=== PATIENT | male | born 1955 | race Caucasian/White ===

== ENCOUNTER 2020-08-11 08:31 | Outpatient (CLI) | payer MEDICARE, BC ==
[2020-08-11 08:45] LABS: BASOPHILS % (AUTO) 0.3 %; EOSINOPHILS # (AUTO) 0.1 10^3/uL (0.0-0.7); EOSINOPHILS % (AUTO) 0.9 %; HGB - HEMOGLOBIN 15.2 g/dL (14.0-18.0); LYMPHOCYTES # (AUTO) 1.9 10^3/uL (1.5-3.5); LYMPHOCYTES % (AUTO) 28.4 %; MEAN CORPUSCULAR HEMOGLOBIN 33.9 pg (27.0-31.0); MEAN CORPUSCULAR HGB CONC 35.3 g/dL (32.0-36.0); MEAN CORPUSCULAR VOLUME 96.2 fL (80.0-94.0); MEAN PLATELET VOLUME 8.9 fL (7.4-11.4); MONOCYTES # (AUTO) 0.7 10^3/uL (0.0-1.0); NEUTROPHILS # (AUTO) 3.9 10^3/uL (1.5-6.6); NEUTROPHILS % (AUTO) 59.8 %; PLT - PLATELET COUNT 164 10^3/uL (130-450); RED BLOOD COUNT 4.48 10^6/uL (4.70-6.10); RED CELL DISTRIBUTION WIDTH 12.3 % (12.0-15.0); WHITE BLOOD COUNT 6.5 x10^3/uL (4.8-10.8)
[2020-08-11 08:59] LABS: ALBUMIN/GLOBULIN RATIO 1.3 (1.0-2.2); BILIRUBIN,TOTAL 0.9 mg/dL (0.2-1.0); CREATININE 0.8 mg/dL (0.6-1.2)
[2020-08-11] MEDS ORDERED: GADOBUTROL 10 MMOL/10 ML VIAL ONE (09:15)
[2020-08-11] MEDS ORDERED: GADOBUTROL 10 MMOL/10 ML VIAL IVP ONE (10:03)
--- NOTE | 2020-08-13 09:15 | MRI Report ---
PROCEDURE: Pelvis W/WO INDICATIONS: MALIGNANT NEOPLASM OF PROSTATE TECHNIQUE: Coronal ultra fast SE, axial T1 FSE with fat saturation, 3-plane nonbreath-hold T2 FSE. After the ad ministration of contrast, dynamic axial, delayed axial and coronal ultra fast GE or 2-D spoiled GE wi th fat saturation through the pelvis. Optional diffusion weighted imaging and ADC may be performed. COMPARISON: None. FINDINGS: Image quality: Diffusion weighted and dynamic contrast enhanced images are diagnostic. Prostate: Gland size is 6.1 x 4.7 by about 6.4 cm cm; ellipsoid gland volume is 95.4 mL. The entire gland demonstrates slightly heterogeneous T2 hypointensity and a small amount of median lo be hypertrophy to the right of midline indenting the base the bladder. Most of the gland demonstrates restricted diffusion and low ADC signal. The entire gland demonstrates diffuse enhancement. There is no significant capsular disruption. No involvement of the neurovascular bundle on either side. There is T2 hypointensity through the central and left aspect of the seminal vesicles. No visible adenopat hy. Lesion PI-RADS score: 5 Genitourinary system: Bladder wall thickness is normal. Distal ureters are non distended. Bowel and peritoneum: No pathologic free pelvic fluid. Inferior colon and small bowel loops are nor mal in caliber. Nodes and vessels: No pelvic or inguinal adenopathy by size criteria. Iliac vessels are normal in c aliber. Soft tissues: Tiny fat-containing right inguinal hernia. Bones: Bone marrow demonstrates normal overall signal. No suspicious bony lesions. IMPRESSION: 1. Diffuse abnormal signal throughout the entire enlarged prostate gland with extension potentially i nto the central and left seminal vesicles. 2. Multisector random prostate biopsies are recommended if not previously performed. 3. No visible adenopathy in the pelvis. 4. Tiny fat-containing right inguinal hernia. Reviewed by: Adrianna Martinez MD on 08/13/2020 9:14 AM PST Approved by: Adrianna Martinez MD on 08/13/2020 9:14 AM PST Station ID: [id number]
== END 2020-08-11 08:32 | disposition home or self-care (01) ==
LOC: LAB 08:31
PROVIDERS: ATTEND Internal Medicine Hematology & Oncology
DX: R93.89 Abnormal findings on diagnostic imaging of other specified body structures (principal); K40.90 Unilateral inguinal hernia, without obstruction or gangrene, not specified as recurrent; C61 Malignant neoplasm of prostate
CPT/HCPCS: 36415; 72197; 80053; 85025; A9585

== ENCOUNTER 2020-09-05 12:04 | Outpatient (CLI) | payer MEDICARE, BC | END 2020-09-05 12:05 | disposition home or self-care (01) | LOC: LAB 12:04 | PROVIDERS: ATTEND Urology | DX: C61 Malignant neoplasm of prostate (principal) | CPT/HCPCS: 36415; 84153 ==

== ENCOUNTER 2020-11-08 12:09 | Outpatient (CLI) | payer MEDICARE, BC ==
[2020-11-08 12:57] LABS: BILIRUBIN,URINE NEGATIVE (NEGATIVE); GLUCOSE, URINE (UA) NEGATIVE (NEGATIVE); KETONES,URINE (UA) NEGATIVE (NEGATIVE); LEUKOCYTE ESTERASE, URINE SMALL (NEGATIVE); NITRITE,URINE POSITIVE (NEGATIVE); OCCULT BLOOD,URINE TRACE-INTA (NEGATIVE); PROTEIN,URINE NEGATIVE (NEGATIVE); UROBILINOGEN,URINE 1 (NORMAL) E.U./dL (NORMAL)
[2020-11-08 13:29] LABS: BACTERIA,URINE Many /HPF (None Seen); CLARITY,URINE CLOUDY (CLEAR); RBC,URINE 0-5 /HPF (0-5); SQUAMOUS EPITHELIAL CELL,UR RARE Squamous (<= Few); WBC,URINE >25 /HPF (0-3)
== END 2020-11-08 12:10 | disposition home or self-care (01) ==
LOC: LAB 12:09
PROVIDERS: ATTEND Urology
DX: C61 Malignant neoplasm of prostate (principal); R30.0 Dysuria
CPT/HCPCS: 36415; 81001; 81003; 84153; 87086; 87181

== ENCOUNTER 2020-12-12 15:25 | Outpatient (CLI) | payer MEDICARE, BC | END 2020-12-12 15:26 | disposition home or self-care (01) | LOC: LAB 15:25 | PROVIDERS: ATTEND Nurse Practitioner Family | DX: C61 Malignant neoplasm of prostate (principal) | CPT/HCPCS: 36415; 84153 ==

== ENCOUNTER 2020-12-26 15:07 | Outpatient (CLI) | payer MEDICARE, BC ==
[2020-12-26 15:29] LABS: BILIRUBIN,URINE NEGATIVE (NEGATIVE); GLUCOSE, URINE (UA) NEGATIVE (NEGATIVE); KETONES,URINE (UA) NEGATIVE (NEGATIVE); LEUKOCYTE ESTERASE, URINE NEGATIVE (NEGATIVE); NITRITE,URINE POSITIVE (NEGATIVE); OCCULT BLOOD,URINE SMALL (NEGATIVE); PROTEIN,URINE NEGATIVE (NEGATIVE); UROBILINOGEN,URINE 1 (NORMAL) E.U./dL (NORMAL)
[2020-12-26 15:32] LABS: CLARITY,URINE HAZY (CLEAR)
[2020-12-26 15:46] LABS: RBC,URINE 0-5 /HPF (0-5)
[2020-12-26 15:47] LABS: BACTERIA,URINE Moderate /HPF (None Seen); SQUAMOUS EPITHELIAL CELL,UR NONE SEEN (<= Few)
== END 2020-12-26 15:08 | disposition home or self-care (01) ==
LOC: LAB 15:07
PROVIDERS: ATTEND Urology
DX: N30.00 Acute cystitis without hematuria (principal)
CPT/HCPCS: 81001; 81003; 87086; 87181

== ENCOUNTER 2021-02-15 12:21 | Outpatient (CLI) | payer MEDICARE, BC ==
--- NOTE | 2021-02-15 14:19 | Ultrasound Report ---
PROCEDURE: Head or Neck Soft Tissue INDICATIONS: THYROID NODULE TECHNIQUE: Real time scanning was performed of the neck region of interest, with image documentation . COMPARISON: None. FINDINGS: There is a single solid hyperechoic nodule in the left thyroid lobe inferiorly measuring ap proximately 1.5 x 2.0 x 2.0 cm. This nodule has macroscopic shadowing calcifications. The thyroid is otherwise normal in appearance. IMPRESSION: Single mildly suspicious left inferior thyroid nodule. Follow-up in 12 months is recommended. Reviewed by: Suraj Bernard MD on 02/15/2021 2:18 PM PDT Approved by: Suraj Bernard MD on 02/15/2021 2:18 PM PDT Station ID: [id number]
== END 2021-02-15 12:22 | disposition home or self-care (01) ==
LOC: DI 12:21
PROVIDERS: ATTEND Internal Medicine Hematology & Oncology
DX: E04.1 Nontoxic single thyroid nodule (principal)

== ENCOUNTER 2021-11-15 08:00 | Outpatient (CLI) | payer MEDICARE, BC ==
--- NOTE | 2021-11-15 14:28 | XRAY Report ---
PROCEDURE: Ribs 2 View RT INDICATIONS: FALL/BACK PAIN/RIGHT RIB PAIN TECHNIQUE: 4 views of the right ribs were acquired. COMPARISON: None. FINDINGS: Surgical changes and devices: None. Bones and chest wall: No fractures or dislocations. No suspicious bony lesions. Overlying soft tis sues appear unremarkable. Lungs and pleura: The visualized lung appears clear. No pleural effusions or pneumothorax are visib le. IMPRESSION: No gross displaced right rib fracture is seen. Visualized right lung field is clear. Reviewed by: Niraj Steele MD on 11/15/2021 2:27 PM PDT Approved by: Niraj Steele MD on 11/15/2021 2:27 PM PDT Station ID: [id number]
--- NOTE | 2021-11-15 14:29 | XRAY Report ---
PROCEDURE: ThoracoLumbar 2 View INDICATIONS: FALL/BACK PAIN TECHNIQUE: 2 views acquired of the thoracolumbar spine. COMPARISON: None. FINDINGS: Bones: No acute fractures or dislocations. Visualized inferior ribs appear intact. Degenerative en dplate changes and loss of disc height throughout lower thoracic and lumbar spine is seen. No suspici ous bony lesions. Soft tissues: No suspicious soft tissue calcifications. IMPRESSION: No acute compression fracture or spondylolisthesis in visualized portion of thoracic and lumbar spine . Degenerative disc disease throughout the spine. Reviewed by: Niraj Steele MD on 11/15/2021 2:28 PM PDT Approved by: Niraj Steele MD on 11/15/2021 2:28 PM PDT Station ID: [id number]
== END 2021-11-15 23:59 | disposition home or self-care (01) ==
LOC: DI.S 08:00
PROVIDERS: ATTEND Physician Assistant Medical
DX: R07.81 Pleurodynia (principal); M51.36 Other intervertebral disc degeneration, lumbar region; M51.34 Other intervertebral disc degeneration, thoracic region

== ENCOUNTER 2021-12-13 14:22 | Outpatient (CLI) | payer MEDICARE, BC ==
[2021-12-13 15:40] LABS: BILIRUBIN,URINE NEGATIVE (NEGATIVE); GLUCOSE, URINE (UA) NEGATIVE (NEGATIVE); KETONES,URINE (UA) NEGATIVE (NEGATIVE); LEUKOCYTE ESTERASE, URINE NEGATIVE (NEGATIVE); NITRITE,URINE NEGATIVE (NEGATIVE); OCCULT BLOOD,URINE TRACE-INTA (NEGATIVE); PROTEIN,URINE NEGATIVE (NEGATIVE); UROBILINOGEN,URINE 0.2 (NORMAL) E.U./dL (NORMAL)
[2021-12-13 15:53] LABS: BACTERIA,URINE None Seen /HPF (None Seen); CLARITY,URINE CLEAR (CLEAR); RBC,URINE 0-5 /HPF (0-5); SQUAMOUS EPITHELIAL CELL,UR NONE SEEN (<= Few); WBC,URINE 0-3 /HPF (0-3)
== END 2021-12-13 14:23 | disposition home or self-care (01) ==
LOC: LAB 14:22
PROVIDERS: ATTEND Urology
DX: R30.0 Dysuria (principal)
CPT/HCPCS: 81001; 87086

== ENCOUNTER 2023-10-22 20:39 | Emergency (ER) | payer MEDICARE, BC ==
[2023-10-22 21:27] LABS: BASOPHILS % (AUTO) 0.2 %; EOSINOPHILS % (AUTO) 0.3 %; HCT - HEMATOCRIT 40.3 % (42.0-52.0); HGB - HEMOGLOBIN 13.8 g/dL (14.0-18.0); LYMPHOCYTES # (AUTO) 0.9 10^3/uL (1.5-3.5); LYMPHOCYTES % (AUTO) 9.5 %; MEAN CORPUSCULAR HGB CONC 34.2 g/dL (32.0-36.0); MEAN CORPUSCULAR VOLUME 96.4 fL (80.0-94.0); MEAN PLATELET VOLUME 8.4 fL (7.4-11.4); MONOCYTES # (AUTO) 0.6 10^3/uL (0.0-1.0); MONOCYTES % (AUTO) 6.1 %; NEUTROPHILS # (AUTO) 7.5 10^3/uL (1.5-6.6); NEUTROPHILS % (AUTO) 83.2 %; PLT - PLATELET COUNT 230 10^3/uL (130-450); RED BLOOD COUNT 4.18 10^6/uL (4.70-6.10); RED CELL DISTRIBUTION WIDTH 12.5 % (12.0-15.0)
[2023-10-22 21:35] LABS: PARTIAL THROMBOPLASTIN TIME 28.1 secs (24.9-33.3)
[2023-10-22 21:39] LABS: INR 1.2 (0.8-1.2); PT - PROTHROMBIN TIME 13.3 secs (9.9-12.6)
[2023-10-22 21:40] LABS: ALBUMIN/GLOBULIN RATIO 1.3 (1.0-2.2); BILIRUBIN,TOTAL 0.9 mg/dL (0.2-1.0); CREATININE 0.8 mg/dL (0.6-1.3); POTASSIUM 3.4 mmol/L (3.5-4.5)
[2023-10-22] MEDS: LIDOCAINE 2% URO-JET 5 ML SYRINGE UR STA (21:47)
--- NOTE | 2023-10-22 21:54 | ED Physician Documentation ---
History of Present Illness - Stated complaint Stated Complaint: - Chief complaint Chief Complaint: General - History obtained from History obtained from: Patient - Additonal information Additional information: The patient comes to the emergency department chief complaint of hematuria and urinary retention. He has a history of prostate cancer and has received many rounds of radiation previously resulting in scarring. He has had a number of hemorrhagic UTIs including a recent 1 within the last couple of weeks. The patient states that he finished the antibiotics last week And saw his urologist yesterday and had a cystoscopy that was reassuring. The patient's urinalysis was negative yesterday in the urologist office prior to the cystoscopy. However, the patient began to notice pain with urination again today and noticed that he had dark red blood in his urine. Then he just stopped being able to urinate at all. Patient has not urinated for several hours and is having a lot of lower abdominal discomfort. He denies fevers, chills, nausea, or vomiting. No other complaints at this time. PD PAST MEDICAL HISTORY - Past Medical History Past Medical History: Yes Cardiovascular: None Respiratory: None Neuro: None Endocrine/Autoimmune: None GI: None : Other Psych: None Musculoskeletal: None Derm: None Other Past Medical History: Prostate CA - Past Surgical History Past Surgical History: Yes - Present Medications Home Medications: Ambulatory Orders Medication Instructions Recorded Confirmed ALPRAZolam [Alprazolam] 0.5 mg PO PRN PRN 07/27/20 12/07/20 Aspirin [Aspirin EC] 81 mg PO DAILY 07/27/20 12/07/20 Atenolol/Chlorthalidone [Tenoretic 1 tab PO DAILY 07/27/20 12/07/20 50 Tablet] Doxazosin [Cardura] 1 mg PO DAILY 07/27/20 12/07/20 Simvastatin [Zocor] 20 mg PO DAILY 07/27/20 12/07/20 cephALEXin [Keflex] 500 mg PO Q6H #28 cap 10/25/23 - Allergies Allergies/Adverse Reactions: Allergies Allergy/AdvReac Type Severity Reaction Status Date / Time No Known Drug Allergies Allergy Verified 10/23/23 06:33 - Social History Does the pt smoke?: No Smoking Status: Never smoker Does the pt drink ETOH?: No Does the pt have substance abuse?: No - Immunizations Immunizations are current?: Yes - POLST Patient has POLST: No PD ED PE NORMAL - Vitals Vital signs reviewed: Yes - General General: Alert and oriented X 3, No acute distress, Well developed/nourished - HEENT HEENT: Atraumatic, PERRL, EOMI, Moist mucous membranes - Neck Neck: Supple, no meningeal sign - Cardiac Cardiac: RRR, No murmur - Respiratory Respiratory: No respiratory distress, Clear bilaterally - Abdomen Abdomen: Soft, Non tender, Non distended - Derm Derm: Normal color, Warm and dry, No rash - Extremities Extremities: No deformity, No edema - Neuro Neuro: Alert and oriented X 3 - Psych Psych: Normal mood, Normal affect Results - Vitals Vitals: Oxygen O2 Source Room air - Labs Labs: Microbiology 10/22/23 23:02 Urine Culture - Final Urine,Random Escherichia Coli Laboratory Tests 10/22/23 10/22/23 10/22/23 21:22 21:22 21:22 WBC 9.0 RBC 4.18 L Hgb 13.8 L Hct 40.3 L MCV 96.4 H MCH 33.0 H MCHC 34.2 RDW 12.5 Plt Count 230 MPV 8.4 Neut # (Auto) 7.5 H Lymph # (Auto) 0.9 L [place] # (Auto) 0.6 Eos # (Auto) 0.0 Baso # (Auto) 0.0 Absolute Nucleated RBC 0.00 Nucleated RBC % 0.0 PT 13.3 H INR 1.2 APTT 28.1 Sodium 133 L Potassium 3.4 L Chloride 100 L Carbon Dioxide 24 Anion Gap 9.0 BUN 21 H Creatinine 0.8 Estimated GFR (MDRD) 96 Glucose 124 H Calcium 9.0 Total Bilirubin 0.9 AST 14 ALT 14 Alkaline Phosphatase 62 Total Protein 7.0 Albumin 4.0 Globulin 3.0 Albumin/Globulin Ratio 1.3 Lipase 31 Urine Color Urine Clarity Urine pH Ur Specific [place] Urine Protein Urine Glucose (UA) Urine Ketones Urine Occult Blood Urine Nitrite Urine Bilirubin Urine Urobilinogen Ur Leukocyte Esterase Urine RBC Urine WBC Ur Squamous Epith Cells Urine Bacteria Ur Microscopic Review Urine Culture Comments 10/22/23 23:02 WBC RBC Hgb Hct MCV MCH MCHC RDW Plt Count MPV Neut # (Auto) Lymph # (Auto) [place] # (Auto) Eos # (Auto) Baso # (Auto) Absolute Nucleated RBC Nucleated RBC % PT INR APTT Sodium Potassium Chloride Carbon Dioxide Anion Gap BUN Creatinine Estimated GFR (MDRD) Glucose Calcium Total Bilirubin AST ALT Alkaline Phosphatase Total Protein Albumin Globulin Albumin/Globulin Ratio Lipase Urine Color RED/BLOODY Urine Clarity BLOODY Urine pH 7.5 Ur Specific [place] 1.020 Urine Protein >=300 H Urine Glucose (UA) NEGATIVE Urine Ketones NEGATIVE Urine Occult Blood LARGE H Urine Nitrite NEGATIVE Urine Bilirubin NEGATIVE Urine Urobilinogen 0.2 (NORMAL) Ur Leukocyte Esterase TRACE H Urine RBC TNTC H Urine WBC 0-3 Ur Squamous Epith Cells NONE SEEN Urine Bacteria Few Ur Microscopic Review INDICATED Urine Culture Comments INDICATED PD Medical Decision Making - ED course Complexity details: reviewed results, re-evaluated patient, considered differential, d/w patient, d/w family ED course: Mahoney catheter was placed which did show frankly bloody urine with minimal clotting. The drainage seemed to be good, and the patient did feel much better after the catheter was placed. He was not lightheaded and his CBC showed a hemoglobin of 13. The patient still had a urinalysis pending at change of shift and he was signed out to Dr. Barbosa, pending this. I do anticipate he will be discharged home, but will need to call his urologist office to determine whether further intervention is needed. Departure - Departure Disposition: Home, Self Care Clinical Impression: Urinary retention Hematuria Qualifiers: Hematuria type: gross Qualified Code(s): R31.0 - Gross hematuria Condition: Stable Instructions: ED Catheter Care Mahoney, ED Retention Urinary Male Prescriptions: cephALEXin [Keflex] 500 mg PO Q6H #28 cap Comments: You have been given a catheter with a leg bag and should use this for the next few days. Your bladder has been irrigated and we have gotten a few clots out but you do not seem to be clotting much. You do not appear to have a urinary tract infection. Is important that you call your urologist office first thing in the morning and let them know what is going on. Forms: PCP List Discharge Date/Time: 10/23/23 01:46
[2023-10-22] MEDS: SODIUM CHLORIDE 0.9% 1,000 ML IV STA (22:21)
[2023-10-22] MEDS: HYDROmorphone 1 MG/ML CARPUJECT IVP STA (22:52)
[2023-10-23 00:04] LABS: BILIRUBIN,URINE NEGATIVE (NEGATIVE); GLUCOSE, URINE (UA) NEGATIVE (NEGATIVE); KETONES,URINE (UA) NEGATIVE (NEGATIVE); LEUKOCYTE ESTERASE, URINE TRACE (NEGATIVE); NITRITE,URINE NEGATIVE (NEGATIVE); OCCULT BLOOD,URINE LARGE (NEGATIVE); PH,URINE 7.5 PH (5.0-7.5); PROTEIN,URINE >=300 mg/dL (NEGATIVE); UROBILINOGEN,URINE 0.2 (NORMAL) E.U./dL (NORMAL)
[2023-10-23 00:06] LABS: BACTERIA,URINE Few /HPF (None Seen); CLARITY,URINE BLOODY (CLEAR); RBC,URINE TNTC /HPF (0-5); SQUAMOUS EPITHELIAL CELL,UR NONE SEEN (<= Few); WBC,URINE 0-3 /HPF (0-3)
--- NOTE | 2023-10-23 00:44 | ED Physician Documentation ---
ED Addendum - Addendum Addendum: 10/23/23 03:01 patient endorsed to me by Dr. Watson awaiting u/a results. no uti on u/a therefore we sent him home with instructions for mcnulty catheter irrigation. plan to f/u urology first thing in am. return precautions given. Impression 1. hematuria Disposition home Condition stable
[2023-10-23] MEDS: HYDROcod/ACETAM 10 MG/325 MG TABLET PO STA (01:26)
[2023-10-23 01:45] VITALS: BP 145/89; O2SAT 99
--- NOTE | 2023-10-25 18:37 | ED Physician Documentation ---
ED Addendum - Addendum Addendum: 10/25/23 18:36 Culture reviewed and I did speak with the patient. He still having a lot of clots but no fevers or chills or body aches or anything suggestive of an active infection. Given that he had the positive urine culture and now has a Mahoney in the I did go ahead and prescribe Keflex 500 mg p.o. 4 times daily for 7 days and he is appreciative. He does plan to follow-up with his urologist.
--- NOTE | 2023-11-11 14:01 | ED Physician Documentation ---
ED Addendum - Addendum Addendum: 11/11/23 14:01 Clarification to my original note: Mahoney catheter was placed by nursing staff, not by emergency physician.
== END 2023-10-23 01:46 | disposition home or self-care (01) ==
LOC: ED 20:39
DX: R33.9 Retention of urine, unspecified (principal); R31.0 Gross hematuria; Z85.46 Personal history of malignant neoplasm of prostate; Z79.82 Long term (current) use of aspirin; Z79.899 Other long term (current) drug therapy
CPT/HCPCS: 36415; 51702; 80053; 81001; 83690; 85025; 85610; 85730; 87077; 87086; 87181; 96374; 99283; A9270; J1170; 81003

== ENCOUNTER 2023-10-23 06:22 | Emergency (ER) | payer MEDICARE, BC ==
--- NOTE | 2023-10-23 08:21 | ED Physician Documentation ---
PD HPI MALE - Stated complaint Stated Complaint: CATH ISSUES - Chief complaint Chief Complaint: Abd Pain - History obtained from History obtained from: Patient - Additional information Additional information: Patient is a 68-year-old male with a history of prostate cancer presenting for evaluation of gross hematuria. Patient had a cystoscopy [address] [facility] by his urologist because he recently has had some hematuria.That hematuria did improve it with the initiation of an antibiotic and his cystoscopy 2 days ago reportedly did not show anything acute. Yesterday he developed hematuria and was seen in our emergency department due to difficulties with urination. A catheter was placed and he was directed to reach out to his urologist which he has not heard back from yet today. This morning the catheter again was not draining and he was having lower abdominal discomfort. He does not take a blood thinner. Prior to my evaluation overnight nurse did irrigate out clots from his catheter and it is now draining and patient reports feeling better. Urologist - Dr. Geronimo Doty 10/21/23 PROCEDURE Flexible cystourethroscopy. FINDINGS The anterior urethra was normal. The prostatic was surgically absent. The bladder itself was 2+trabeculated.. There was diffuse telangectasia changes. There were no diverticula or saccules. The ureteral orifices were orthotopic with clear efflux. Review of Systems Constitutional: denies: Fever Cardiac: denies: Chest pain / pressure Respiratory: denies: Dyspnea GI: denies: Abdominal Pain, Vomiting, Diarrhea : reports: Hematuria PD PAST MEDICAL HISTORY - Past Medical History Past Medical History: Yes Cardiovascular: None Respiratory: None Neuro: None Endocrine/Autoimmune: None GI: None : Other Psych: None Musculoskeletal: None Derm: None - Past Surgical History Past Surgical History: Yes - Present Medications Home Medications: Ambulatory Orders Medication Instructions Recorded Confirmed ALPRAZolam [Alprazolam] 0.5 mg PO PRN PRN 07/27/20 12/07/20 Aspirin [Aspirin EC] 81 mg PO DAILY 07/27/20 12/07/20 Atenolol/Chlorthalidone [Tenoretic 1 tab PO DAILY 07/27/20 12/07/20 50 Tablet] Doxazosin [Cardura] 1 mg PO DAILY 07/27/20 12/07/20 Simvastatin [Zocor] 20 mg PO DAILY 07/27/20 12/07/20 - Allergies Allergies/Adverse Reactions: Allergies Allergy/AdvReac Type Severity Reaction Status Date / Time No Known Drug Allergies Allergy Verified 10/23/23 06:33 - Social History Does the pt smoke?: No Smoking Status: Never smoker Does the pt drink ETOH?: No Does the pt have substance abuse?: No - Immunizations Immunizations are current?: Yes - POLST Patient has POLST: No PD ED PE NORMAL - General General: Alert and oriented X 3, No acute distress, Well developed/nourished - HEENT HEENT: Atraumatic, Moist mucous membranes, Pharynx benign - Neck Neck: Supple, no meningeal sign - Cardiac Cardiac: RRR, Strong equal pulses - Respiratory Respiratory: No respiratory distress, Clear bilaterally - Abdomen Abdomen: Normal bowel sounds, Soft, Non tender, Non distended - Male Male : Other (Gross hematuria in catheter tubing; No clots, freely draining) - Derm Derm: Warm and dry - Neuro Neuro: Normal speech Results - Vitals Vitals: Vital Signs - 24 hr 10/23/23 10/23/23 06:29 11:51 Temperature 36.8 C Heart Rate 55 L 61 Respiratory 16 18 Rate Blood Pressure 152/76 H 144/74 H O2 Saturation 97 96 Oxygen O2 Source Room air - Labs Labs: Laboratory Tests 10/23/23 10/23/23 08:19 08:19 WBC 11.3 H RBC 3.89 L Hgb 13.0 L Hct 38.2 L MCV 98.2 H MCH 33.4 H MCHC 34.0 RDW 12.8 Plt Count 212 MPV 8.2 Neut # (Auto) 10.0 H Lymph # (Auto) 0.6 L [place] # (Auto) 0.6 Eos # (Auto) 0.0 Baso # (Auto) 0.0 Absolute Nucleated RBC 0.00 Nucleated RBC % 0.0 Sodium 135 Potassium 3.9 Chloride 102 Carbon Dioxide 27 Anion Gap 6.0 BUN 14 Creatinine 0.7 Estimated GFR (MDRD) 112 Glucose 121 H Calcium 9.0 PD Medical Decision Making - ED course Complexity details: reviewed results, re-evaluated patient, d/w patient ED course: Patient is a 68-year-old male presenting for evaluation of gross hematuria and catheter clogging. Patient had a catheter placed last night for hematuria after having recently had a cystoscopy. Hematuria was cleared with manual and continuous bladder irrigation as well as changing out the catheter. Drainage is now clear urine. Patient is feeling much better. His urologist is through the [facility]. Patient has plans to reach out for close follow-up. Discussed concerning symptoms to return for. CBC and chemistries reviewed. Mild drop in hemoglobin but not significant. Patient is not symptomatic from this. Departure - Departure Disposition: 01 Home, Self Care Clinical Impression: Gross hematuria Condition: Stable Instructions: ED Hematuria Follow-Up: Geronimo Doty MD [Primary Care Provider] - Comments: The blood in your urine has cleared up with changing out your catheter as well as irrigating the bladder. I would recommend calling your urologist today for close follow-up to have the catheter removed. If you develop any worsening symptoms such as a large amount of blood in the catheter or issues with the catheter draining then you will need to return to the emergency department. Forms: PCP List Discharge Date/Time: 10/23/23 11:54
[2023-10-23 08:23] LABS: BASOPHILS % (AUTO) 0.2 %; HCT - HEMATOCRIT 38.2 % (42.0-52.0); LYMPHOCYTES # (AUTO) 0.6 10^3/uL (1.5-3.5); LYMPHOCYTES % (AUTO) 5.2 %; MEAN CORPUSCULAR HEMOGLOBIN 33.4 pg (27.0-31.0); MEAN CORPUSCULAR VOLUME 98.2 fL (80.0-94.0); MEAN PLATELET VOLUME 8.2 fL (7.4-11.4); MONOCYTES # (AUTO) 0.6 10^3/uL (0.0-1.0); MONOCYTES % (AUTO) 5.7 %; NEUTROPHILS % (AUTO) 88.5 %; PLT - PLATELET COUNT 212 10^3/uL (130-450); RED BLOOD COUNT 3.89 10^6/uL (4.70-6.10); RED CELL DISTRIBUTION WIDTH 12.8 % (12.0-15.0); WHITE BLOOD COUNT 11.3 x10^3/uL (4.8-10.8)
[2023-10-23 08:36] LABS: CREATININE 0.7 mg/dL (0.6-1.3); POTASSIUM 3.9 mmol/L (3.5-4.5)
[2023-10-23] MEDS: LIDOCAINE 2% URO-JET 5 ML SYRINGE UR STA (10:37)
[2023-10-23 11:59] VITALS: BP 144/74; O2SAT 96
== END 2023-10-23 11:54 | disposition home or self-care (01) ==
LOC: ED 06:22
DX: T83.098A Other mechanical complication of other urinary catheter, initial encounter (principal); R31.0 Gross hematuria; R33.9 Retention of urine, unspecified; Z85.46 Personal history of malignant neoplasm of prostate; Z79.82 Long term (current) use of aspirin; Z79.899 Other long term (current) drug therapy
CPT/HCPCS: 36415; 51702; 80048; 80053; 81001; 83690; 85025; 85610; 85730; 87077; 87086; 87181; 96374; 99283; A9270; J1170; 81003